=== PATIENT | female | born 1975 | race Caucasian/White ===

== ENCOUNTER 2017-11-27 08:34 | Emergency (ER) | payer MEDICAID ==
[~2017-11-27] VITALS: Ht 160 cm; Wt 49.9 kg
--- NOTE | 2017-11-27 09:33 | NUR ---
PATIENT TO ED DT LOWER ABDOMIBAL AND BACK PAIN. DENIES NAUSEA AND VOMITTING. DENIES HEMATURIA NOR DYSURIA. AFEBRILE. VSS
[2017-11-27 10:18] LABS: APPEARANCE,URINE Clear (CLEAR); BILIRUBIN,URINE Negative (NEGATIVE); BLOOD, URINE Negative Ery/uL (NEGATIVE); KETONES,URINE Trace (NEGATIVE); LEUKOCYTE ESTERASE ,URINE Negative (NEGATIVE); NITRITE, URINE Negative (NEGATIVE); PH,URINE 5.5 (5.0-8.0); PROTEIN,URINE Negative (NEGATIVE); UGLUCOSE Negative (NEGATIVE); UROBILINOGEN,URINE 0.2 EU/dL (0.2)
[2017-11-27 10:19] LABS: COLOR,URINE Dark Yellow (YELLOW)
[2017-11-27 10:25] LABS: BACTERIA,URINE None seen /HPF (None Seen); MUCUS,URINE Few /LPF (None Seen); SQUAMOUS EPITHELIAL CELL,UR Few /HPF (None Seen); WBC,URINE 0-3 /HPF (0-3)
[2017-11-27 10:45] VITALS: BP 120/80
--- NOTE | 2017-11-27 10:45 | NUR ---
Patient discharged to home in stable condition. Written and verbal after care instructions given. Patient verbalizes understanding of instruction.
== END 2017-11-27 10:46 | disposition home or self-care (01) ==
LOC: ER 08:35
DX: R10.30 Lower abdominal pain, unspecified (principal)
CPT/HCPCS: 76856-TC; 81000-TC; 84703-TC; A4606; Z7610

== ENCOUNTER 2018-03-08 04:12 | Emergency (ER) | payer MEDICAID ==
[~2018-03-08] VITALS: Ht 165.1 cm; Wt 81.6 kg
--- NOTE | 2018-03-08 04:20 | NUR ---
PT TO ER BED 16. PT PLACED IN GOWN AND ON ASSOCIATE BROKER. VSS/RESP EVEN UNLABORED/NAD NOTED/SKIN WARM AND DRY/DENIES N-V-D/AFEBRILE/AOX4. MD AT BEDSIDE FOR EVAL.
[2018-03-08] MEDS ORDERED: IV NS 0.9% 500 ML BAG IV ONE (04:30)
--- NOTE | 2018-03-08 04:40 | NUR ---
20G IV X 1 ATTEMPT TO L AC USING ASEPTIC TECH, BLOOD HANDED OVER TO THE LAB AT THE BEDSIDE. IV FLUSHES EASILY WITH NS, NO S/S INFILTRATION.
[2018-03-08 04:58] LABS: BASOPHILS % (AUTO) 0.4 % (0.0-2.0); EOSINOPHILS % (AUTO) 1.2 % (0.0-6.0); HEMATOCRIT 36 % (33-45); HEMOGLOBIN 12.4 g/dL (11.5-14.8); LYMPHOCYTES # (AUTO) 2.7 /CMM (0.8-4.8); LYMPHOCYTES % (AUTO) 28.2 % (20.0-44.0); MEAN CORPUSCULAR HGB CONC 34 g/dl (31.0-36.0); MEAN CORPUSCULAR VOLUME 85 fL (82-100); MONOCYTES # (AUTO) 0.7 /CMM (0.1-1.30); MONOCYTES % (AUTO) 7.3 % (2.0-12.0); NEUTROPHILS # (AUTO) 6.1 /CMM (1.8-8.9); NEUTROPHILS % (AUTO) 62.9 % (43.0-81.0); PLATELET COUNT (AUTO) 205 /CMM (150-450); RDW COEFFICIENT OF VARIATION 12.4 (11.5-15.0); RED BLOOD CELL COUNT(AUTO) 4.25 MIL/uL (4.0-5.2); WHITE BLOOD COUNT (AUTO) 9.7 K/uL (4.3-11.0)
[2018-03-08 05:10] LABS: CALCIUM, SERUM 8.7 mg/dL (8.5-10.1); CREATININE 0.8 mg/dL (0.6-1.3); POTASSIUM 3.8 mmol/L (3.5-5.1)
--- NOTE | 2018-03-08 05:20 | NUR ---
ULTRASOUND AT BEDSIDE.
[2018-03-08 05:32] LABS: APPEARANCE,URINE SL CLOUDY (CLEAR); BILIRUBIN,URINE NEGATIVE (NEGATIVE); BLOOD, URINE 3+ Ery/uL (NEGATIVE); COLOR,URINE YELLOW (YELLOW); KETONES,URINE NEGATIVE (NEGATIVE); LEUKOCYTE ESTERASE ,URINE NEGATIVE (NEGATIVE); NITRITE, URINE NEGATIVE (NEGATIVE); PROTEIN,URINE NEGATIVE (NEGATIVE); UGLUCOSE NEGATIVE (NEGATIVE); UROBILINOGEN,URINE 0.2 EU/dL (0.2)
[2018-03-08 05:33] LABS: INR 0.95 (0.87-1.13)
--- NOTE | 2018-03-08 05:47 | NUR ---
MD AT BEDSIDE SPEAKING WITH PATIENT.
[2018-03-08 05:55] LABS: RBC,URINE 81-100 /HPF (0-2)
[2018-03-08 05:56] LABS: BACTERIA,URINE None seen /HPF (None Seen); SQUAMOUS EPITHELIAL CELL,UR Moderate /HPF (None Seen)
--- NOTE | 2018-03-08 06:02 | NUR ---
pt ok to discharge per dr stevenson. IV removed. Catheter intact and site benign. Pressure and 4x4 applied to site. No bleeding noted.Patient discharged to home in stable condition. Written and verbal after care instructions given. Patient verbalizes understanding of instruction.Patient is awake and alert to self, day, and place. pt ambulatory with a steady gait
[2018-03-08 06:03] VITALS: BP 127/80
== END 2018-03-08 06:04 | disposition home or self-care (01) ==
LOC: ER 04:13
DX: N93.8 Other specified abnormal uterine and vaginal bleeding (principal); N92.0 Excessive and frequent menstruation with regular cycle
CPT/HCPCS: 36415; 76856; 80048; 81001; 84702; 85025; 85730; 99285; A4606; J7040; Z7610; 81000-TC

== ENCOUNTER 2019-04-15 20:24 | Emergency (ER) | payer MEDICAID ==
[~2019-04-15] VITALS: Ht 160 cm; Wt 77.1 kg
[2019-04-15 21:00] VITALS: BP 141/72
--- NOTE | 2019-04-15 21:00 | NUR ---
PT BIBSELF C/O LOWER ABDOMINAL PAIN RADIATING TO BACK X10 DAYS. +L FLANK PAIN. -N/V/D, -DYSURIA, -HEMATURIA. PT AOX4. NAD NOTED. RESP EVEN AND UNLABORED. PT IN BED 9 WITH FAMILY AT BEDSIDE. WILL CONTINUE TO MONITOR.
--- NOTE | 2019-04-15 21:10 | NUR ---
URINE COLLECTED AND SENT TO LAB
[2019-04-15 21:19] LABS: APPEARANCE,URINE Clear (CLEAR); BILIRUBIN,URINE Negative (NEGATIVE); BLOOD, URINE Trace-lysed Ery/uL (NEGATIVE); COLOR,URINE Yellow (YELLOW); KETONES,URINE Negative (NEGATIVE); LEUKOCYTE ESTERASE ,URINE Negative (NEGATIVE); NITRITE, URINE Negative (NEGATIVE); PH,URINE 5.5 (5.0-8.0); PROTEIN,URINE Negative (NEGATIVE); UGLUCOSE Negative (NEGATIVE); UROBILINOGEN,URINE 0.2 EU/dL (0.2)
[2019-04-15 21:40] LABS: RBC,URINE 0-2 /HPF (0-2)
[2019-04-15 21:41] LABS: BACTERIA,URINE Moderate /HPF (None Seen); SQUAMOUS EPITHELIAL CELL,UR Moderate /HPF (None Seen); WBC,URINE 0-3 /HPF (0-3)
--- NOTE | 2019-04-15 21:46 | NUR ---
PT TAKEN TO RADIOLOGY VIA WHEELCHAIR
--- NOTE | 2019-04-15 22:16 | NUR ---
PT RETURNED FROM RADIOLOGY. PT TOLERATED WELL.
[2019-04-15 22:26] LABS: BASOPHILS # (AUTO) 0.1 /CMM (0.0-0.2); BASOPHILS % (AUTO) 1.2 % (0.0-2.0); EOSINOPHILS % (AUTO) 0.6 % (0.0-6.0); HEMATOCRIT 38 % (33-45); HEMOGLOBIN 12.6 g/dL (11.5-14.8); LYMPHOCYTES # (AUTO) 3.4 /CMM (0.8-4.8); LYMPHOCYTES % (AUTO) 34.7 % (20.0-44.0); MEAN CORPUSCULAR HGB CONC 34 g/dl (31.0-36.0); MEAN CORPUSCULAR VOLUME 87 fL (82-100); MONOCYTES # (AUTO) 0.6 /CMM (0.1-1.30); MONOCYTES % (AUTO) 6.3 % (2.0-12.0); NEUTROPHILS # (AUTO) 5.7 /CMM (1.8-8.9); NEUTROPHILS % (AUTO) 57.2 % (43.0-81.0); PLATELET COUNT (AUTO) 251 /CMM (150-450); WHITE BLOOD COUNT (AUTO) 9.9 K/uL (4.3-11.0)
[2019-04-15 22:34] LABS: CALCIUM, SERUM 8.7 mg/dL (8.5-10.1); CREATININE 0.7 mg/dL (0.6-1.3); POTASSIUM 4.1 mmol/L (3.5-5.1)
[2019-04-15 22:40] LABS: ALBUMIN 3.9 g/dL (3.4-5.0); BILIRUBIN,TOTAL 0.2 mg/dL (0.2-1.0); TOTAL PROTEIN, SERUM 8.1 g/dL (6.4-8.2)
--- NOTE | 2019-04-15 23:38 | NUR ---
Patient discharged to home in stable condition. Written and verbal after care instructions given. Patient verbalizes understanding of instruction. PT AMBULATORY WITH STEADY GAIT.
== END 2019-04-15 23:40 | disposition home or self-care (01) ==
LOC: ER 20:24
DX: K59.00 Constipation, unspecified (principal)
CPT/HCPCS: 36415; 74018; 76856-TC; 80048-TC; 80076-TC; 81000-TC; 84702-TC; 84703-TC; 85025-TC; 87086-TC

== ENCOUNTER 2019-11-11 09:36 | Emergency (ER) | payer MEDICAID ==
[~2019-11-11] VITALS: Ht 160 cm; Wt 83.5 kg
[2019-11-11 09:38] VITALS: BP 130/77
--- NOTE | 2019-11-11 09:46 | NUR ---
patient came in to the ER c/o left side body pain x 10 days 8/ ps, on room air, breathing evenly and unlabored. connected to the monitor and pulse ox. kept comfortable, will continue to monitor accordingly.
--- NOTE | 2019-11-11 09:55 | NUR ---
awaiting for MD for eval.
--- NOTE | 2019-11-11 10:47 | NUR ---
Patient discharged to home in stable condition. Written and verbal after care instructions given. Patient verbalizes understanding of instruction.
== END 2019-11-11 10:47 | disposition home or self-care (01) ==
LOC: ER 09:38
DX: M54.6 Pain in thoracic spine (principal); M25.512 Pain in left shoulder

== ENCOUNTER 2020-05-24 14:15 | Emergency (ER) | payer MEDICAID ==
[~2020-05-24] VITALS: Ht 177.8 cm; Wt 68.0 kg
--- NOTE | 2020-05-24 15:00 | NUR ---
UNABLE TO STAY TO SEE MD DUE TO AN AGITATED PATIENT IN ER.
[2020-05-24 15:02] VITALS: BP 134/95
== END 2020-05-24 15:00 | disposition left against medical advice (07) ==
LOC: ER 14:21
DX: Z53.21 Procedure and treatment not carried out due to patient leaving prior to being seen by health care provider (principal)

== ENCOUNTER 2023-04-23 08:50 | Emergency (ER) | payer MEDICAID, OTHER ==
[~2023-04-23] VITALS: Ht 160 cm; Wt 86.2 kg
--- NOTE | 2023-04-23 09:29 | NUR ---
iv line is established, blood specimen collected and sent to the lab. the line is saline locked.
--- NOTE | 2023-04-23 10:03 | NUR ---
PATIENT REFUSES TO GIVE URINE SPECIMEN. DR ORONA AWARE.
--- NOTE | 2023-04-23 11:06 | NUR ---
Patient does not wish to proceed with medical care recommended by Dr. Fisher. Patient given information related to possible complications, up to and including , which could occur as a result of leaving the hospital at this time. Patient verbalizes understanding of risks involved due to leaving against medical advice. Patient has signed AMA form.
[2023-04-23 11:16] LABS: CALCIUM, SERUM 9.2 mg/dL (8.5-10.1); CARBON DIOXIDE 25 mmol/L (21-32); CHLORIDE 104 mmol/L (98-107); CREATININE 0.7 mg/dL (0.6-1.3); GLUCOSE 106 mg/dL (74-106); POTASSIUM 3.8 mmol/L (3.5-5.1); SODIUM SERUM 138 mmol/L (136-145); UREA NITROGEN, BLOOD 17 mg/dL (7-18)
[2023-04-23 11:24] VITALS: BP 127/72
[2023-04-23 11:40] LABS: BASOPHILS % (AUTO) 0.6 % (0.0-2.0); EOSINOPHILS % (AUTO) 2.6 % (0.0-6.0); HEMATOCRIT 39 % (33-45); LYMPHOCYTES # (AUTO) 2.6 K/uL (0.8-4.8); LYMPHOCYTES % (AUTO) 30.7 % (20.0-44.0); MEAN CORPUSCULAR HGB CONC 33 g/dl (31.0-36.0); MEAN CORPUSCULAR VOLUME 86 fL (82-100); MONOCYTES # (AUTO) 0.6 K/uL (0.1-1.30); MONOCYTES % (AUTO) 7.8 % (2.0-12.0); NEUTROPHILS # (AUTO) 4.9 K/uL (1.8-8.9); NEUTROPHILS % (AUTO) 58.3 % (43.0-81.0); PLATELET COUNT (AUTO) 242 K/uL (150-450); WHITE BLOOD COUNT (AUTO) 8.4 K/uL (4.3-11.0)
== END 2023-04-23 11:24 | disposition home or self-care (01) ==
LOC: ER 08:52
DX: R07.89 Other chest pain (principal); I10 Essential (primary) hypertension
CPT/HCPCS: 36415; 80048-TC; 83735-TC; 84484-TC; 85025-TC; 85378-TC